=== PATIENT | male | born 2000 | race Caucasian/White ===

== ENCOUNTER 2022-04-12 10:14 | Outpatient (CLI) | payer BC, SELFPAY ==
--- NOTE | ~2022-04-12 | US_ITS ---
US scrotum doppler INDICATION: Left testicular pain TECHNIQUE: Testicular sonogram utilizing grayscale and color Doppler FINDINGS: The testes are normal in size and appearance. No focal lesions are seen. The right testes measures 4.4 x 2.3 x 2.8 cm centimeters, and the left testis measures 4.3 x 2 x 2.9 cm cm. There is n ormal vascular flow to both testes. There is a small 4 mm left epididymal cysts. There is no varicocele or hydrocele. IMPRESSION: 1. Left epididymal cyst measuring 4 mm. Reviewed, dictated and finalized at location A.
== END 2022-04-12 10:15 | disposition home or self-care (01) ==
PROVIDERS: PCP Family Medicine; Visit Provider Physician Assistant
DX: N50.812 Left testicular pain (principal); N50.3 Cyst of epididymis
CPT/HCPCS: 76870; 93976